=== PATIENT | male | born 1970 | race Caucasian/White ===

== ENCOUNTER 2022-11-25 11:30 | Emergency (ER) | payer BC ==
[2022-11-25 11:45] VITALS: BP 158/100; PULSE 60; RESP 20; TEMP 98.8; BMI 46.0
== END 2022-11-25 12:36 | disposition home or self-care (01) ==
LOC: FER 11:30
DX: J18.9 Pneumonia, unspecified organism (principal); R05.1 Acute cough; Z20.822 Contact with and (suspected) exposure to COVID-19
CPT/HCPCS: 0241U-QW; 71046-TC-FY; 99284-25